=== PATIENT | male | born 1950 | race Two or more races ===

== ENCOUNTER → 2016-09-29 | Outpatient (CLI) | payer MEDICARE, OTHER ==
[2016-09-29 10:59] LABS: BASOPHILS % (AUTO) 0.6 % (0.0-2.0); EOSINOPHILS % (AUTO) 1.6 % (1.0-6.0); HEMATOCRIT 36.5 % (41-53); HEMOGLOBIN 11.5 g/dL (13.5-17.5); LYMPHOCYTES % (AUTO) 27.3 % (22.0-44.0); MEAN CORPUSCULAR HGB CONC 31.5 G/dL (31.0-37.0); MEAN CORPUSCULAR VOLUME 79 fL (80-100); MONOCYTES # (AUTO) 0.3 K/uL (0.1-1.0); MONOCYTES % (AUTO) 4.4 % (2.0-9.0); NEUTROPHILS # (AUTO) 4.9 K/uL (1.8-7.7); NEUTROPHILS % (AUTO) 66.1 % (40.0-70.0); PLATELET COUNT (AUTO) 332 K/uL (150-450); RED CELL DISTRIBUTION WIDTH 16.4 % (11.5-14.5); WHITE BLOOD COUNT (AUTO) 7.5 K/uL (4.5-11.0)
[2016-09-29 11:23] LABS: ALANINE AMINOTRANSFERASE 27 U/L (12-78); ANION GAP 8 mmol/L (8-16); ASPARTATE AMINOTRANSFERASE 21 U/L (15-37); BILIRUBIN,TOTAL 0.4 mg/dL (0.1-1.0); CALCIUM, TOTAL 8.7 mg/dL (8.8-10.5); CARBON DIOXIDE 29 mmol/L (22-29); CHLORIDE 103 mmol/L (98-107); CHOL/HDL RATIO 3.9 (4.2-7.3); GLOMERULAR FILTR. RATE CALC > 60 mL/min (>60); POTASSIUM 4.2 mmol/L (3.5-5.1); SODIUM SERUM 140 mmol/L (136-145); THYROID STIMULATING HORMONE 2.46 uIU/mL (0.36-3.74); TOTAL PROTEIN, SERUM 7.8 g/dL (6.4-8.2); UREA NITROGEN, BLOOD 18 mg/dL (7-18)
== END | disposition home or self-care (01) ==
LOC: LABPV 09:12
PROVIDERS: ATTEND Internal Medicine Cardiovascular Disease
DX: E11.8 Type 2 diabetes mellitus with unspecified complications (principal); I11.0 Hypertensive heart disease with heart failure; I50.9 Heart failure, unspecified; E55.9 Vitamin D deficiency, unspecified
CPT/HCPCS: 82306; 83036; 84439; 84443

== ENCOUNTER 2017-12-07 20:37 | Emergency (ER) | payer MEDICARE, OTHER ==
[~2017-12-07] VITALS: Ht 170.2 cm; Wt 102.0 kg
[2017-12-07] MEDS ORDERED: ATOR-2 PO (20:47)
[2017-12-07] MEDS ORDERED: LOSA100T29 PO (20:47)
[2017-12-07] MEDS ORDERED: FURO40TA5 PO (20:47)
[2017-12-07] MEDS ORDERED: METO-408 PO (20:47)
[2017-12-07] MEDS ORDERED: PRAZ2 PO (20:47)
[2017-12-07] MEDS ORDERED: ASPI-1182 PO (20:47)
[2017-12-07] MEDS ORDERED: GLIP10TA9 PO (20:47)
[2017-12-07] MEDS ORDERED: METF10002 PO (20:47)
[2017-12-07] MEDS ORDERED: OMEP20CA10 PO (20:47)
[2017-12-07 20:52] LABS: GLUCOSE,POINT OF CARE 117 MG/DL (70-110)
[2017-12-07 21:33] LABS: BASOPHILS % (AUTO) 0.7 % (0.0-2.0); EOSINOPHILS % (AUTO) 2.1 % (1.0-6.0); HEMATOCRIT 35.6 % (41-53); LYMPHOCYTES % (AUTO) 35.6 % (22.0-44.0); MEAN CORPUSCULAR HEMOGLOBIN 26.4 pg (26.0-34.0); MEAN CORPUSCULAR HGB CONC 33.7 G/dL (31.0-37.0); MEAN CORPUSCULAR VOLUME 78 fL (80-100); MONOCYTES # (AUTO) 0.4 K/uL (0.1-1.0); MONOCYTES % (AUTO) 5.4 % (2.0-9.0); NEUTROPHILS # (AUTO) 4.7 K/uL (1.8-7.7); NEUTROPHILS % (AUTO) 56.2 % (40.0-70.0); PLATELET COUNT (AUTO) 275 K/uL (150-450); RED BLOOD CELL COUNT(AUTO) 4.55 MIL/uL (4.50-5.90); RED CELL DISTRIBUTION WIDTH 16.1 % (11.5-14.5)
[2017-12-07 21:45] LABS: ANION GAP 7 mmol/L (8-16); CALCIUM, TOTAL 9.3 mg/dL (8.8-10.5); CARBON DIOXIDE 33 mmol/L (22-29); CHLORIDE 100 mmol/L (98-107); CREATININE 0.84 mg/dL (0.60-1.30); GLOMERULAR FILTR. RATE CALC > 60 mL/min (>60); GLUCOSE,RANDOM 129 mg/dL (70-110); POTASSIUM 3.7 mmol/L (3.5-5.1); SODIUM SERUM 140 mmol/L (136-145); UREA NITROGEN, BLOOD 27 mg/dL (7-18)
[2017-12-07 21:51] LABS: ALANINE AMINOTRANSFERASE 24 U/L (12-78); ALBUMIN 3.6 g/dL (3.4-5.0); ALKALINE PHOSPHATASE 49 U/L (46-116); ASPARTATE AMINOTRANSFERASE 16 U/L (15-37); BILIRUBIN,TOTAL 0.3 mg/dL (0.1-1.0); TOTAL PROTEIN, SERUM 7.6 g/dL (6.4-8.2)
[2017-12-07 22:09] VITALS: BP 135/76
[2017-12-07] MEDS ORDERED: NAPROXEN 250 MG TABLET PO ONE (22:30)
[2017-12-07] MEDS ORDERED: HYDROCODONE/ACETAMINOPHEN 5-325 MG TABLET PO ONE (22:30)
== END 2017-12-07 22:54 | disposition home or self-care (01) ==
LOC: EMS 20:38
DX: R07.89 Other chest pain (principal); I10 Essential (primary) hypertension; E11.9 Type 2 diabetes mellitus without complications; E78.00 Pure hypercholesterolemia, unspecified
CPT/HCPCS: 82962; 93005; 99285